=== PATIENT | male | born 1995 | race African-American/Black ===

== ENCOUNTER 2018-10-18 20:27 | Emergency (ER) | payer OTHER ==
--- NOTE | 2018-10-18 20:36 | PDOC ---
History of Present Illness - General History Source: Patient Exam Limitations: No Limitations - History of Present Illness Initial Comments: 10/18/18 21:11 The patient is a year 22 old male, with no significant PMH, who presents to the emergency department with right shoulder pain and chest pain that began approximately a year ago but progressively worsened today. The patient states his right shoulder feels heavy and experiences cramps that radiate to the right arm and hand. He notes sometimes intermittent numbness to the fingers especially the pinky. The patient also mentions he has intermittent mild chest discomfort as well. The patient denies any trauma or injuries. Denies headache and dizziness. Denies fever, chills, nausea, vomit, diarrhea and constipation. Allergies: NKDA Past surgical history: None reported Social history: Smokes marijuana daily but denies alcohol and tobacco use. PCP: None reported <Katiana Zimmer - Last Filed: 10/18/18 22:15> <Emelina Veras - Last Filed: 10/19/18 04:05> - General Chief Complaint: Pain Stated Complaint: SHOULDER PAIN/CHEST HEAVINESS Time Seen by Provider: 10/18/18 20:33 Past History <Katiana Zimmer - Last Filed: 10/18/18 22:15> - Past Medical History COPD: No - Immunization History Immunization Up to Date: Yes - Suicide/Smoking/Psychosocial Hx Smoking History: Current every day smoker Number of Cigarettes Smoked Daily: 0 Information on smoking cessation initiated: Yes Hx Alcohol Use: No Drug/Substance Use Hx: Yes (MARIJUANA) Substance Use Type: None <Emelina Veras - Last Filed: 10/19/18 04:05> - Past Medical History Allergies/Adverse Reactions: Allergies Allergy/AdvReac Type Severity Reaction Status Date / Time No Known Allergies Allergy Verified 05/01/14 16:51 Home Medications: Ambulatory Orders NK [No Known Home Medication] 10/18/18 Review of Systems - Review of Systems Able to Perform ROS?: Yes Comments:: 10/18/18 21:11 GENERAL/CONSTITUTIONAL: No fever or chills. No weakness. HEAD, EYES, EARS, NOSE AND THROAT: No change in vision. No ear pain or discharge. No sore throat. CARDIOVASCULAR: +Chest pain. No shortness of breath. RESPIRATORY: No cough, wheezing, or hemoptysis. GASTROINTESTINAL: No nausea, vomiting, diarrhea or constipation. GENITOURINARY: No dysuria, frequency, or change in urination. MUSCULOSKELETAL: No joint or muscle swelling or pain. No neck or back pain. SKIN: No rash NEUROLOGIC: No headache, vertigo, loss of consciousness, or change in strength/ sensation. ENDOCRINE: No increased thirst. No abnormal weight change. HEMATOLOGIC/LYMPHATIC: No anemia, easy bleeding, or history of blood clots. ALLERGIC/IMMUNOLOGIC: No hives or skin allergy. <Katiana Zimmer - Last Filed: 10/18/18 22:15> *Physical Exam - Vital Signs Last Vital Signs Temp Pulse Resp BP Pulse Ox 98.3 F 69 16 114/77 100 10/18/18 20:31 10/18/18 20:31 10/18/18 20:31 10/18/18 20:31 10/18/18 20:31 - Physical Exam Comments: 10/18/18 21:12 GENERAL: Awake, alert, and fully oriented, in no acute distress HEAD: No signs of trauma EYES: PERRLA, EOMI, sclera anicteric, conjunctiva clear ENT: Auricles normal inspection, hearing grossly normal, nares patent, oropharynx clear without exudates. Moist mucosa NECK: Normal ROM, supple, no lymphadenopathy, JVD, or masses LUNGS:+Crepitus right shoulder joint with abduction greater than 60 degrees. No tenderness to the AC joint. HEART: Regular rate and rhythm, normal S1 and S2, no murmurs, rubs or gallops ABDOMEN: Soft, nontender, normoactive bowel sounds. No guarding, no rebound. No masses EXTREMITIES: Normal range of motion, no edema. No clubbing or cyanosis. No cords, erythema, or tenderness NEUROLOGICAL: Cranial nerves II through XII grossly intact. Normal speech, normal gait SKIN: Warm, Dry, normal turgor, no rashes or lesions noted. <Katiana Zimmer - Last Filed: 10/18/18 22:15> - Vital Signs Last Vital Signs Temp Pulse Resp BP Pulse Ox 98.3 F 69 16 114/77 100 10/18/18 20:31 10/18/18 20:31 10/18/18 20:31 10/18/18 20:31 10/18/18 20:31 <Emelina Veras - Last Filed: 10/19/18 04:05> Moderate Sedation - Procedure Monitoring Vital Signs: Procedure Monitoring Vital Signs Temperature 98.3 F 10/18/18 20:31 Pulse Rate 69 10/18/18 20:31 Respiratory Rate 16 10/18/18 20:31 Blood Pressure 114/77 10/18/18 20:31 O2 Sat by Pulse Oximetry (%) 100 10/18/18 20:31 <GoranAurorasanjuana - Last Filed: 10/18/18 22:15> - Procedure Monitoring Vital Signs: Procedure Monitoring Vital Signs Temperature 98.3 F 10/18/18 20:31 Pulse Rate 69 10/18/18 20:31 Respiratory Rate 16 10/18/18 20:31 Blood Pressure 114/77 10/18/18 20:31 O2 Sat by Pulse Oximetry (%) 100 10/18/18 20:31 <Emelina Veras - Last Filed: 10/19/18 04:05> Medical Decision Making - Medical Decision Making Documentation has been prepared under my direction and personally reviewed by me in its entirety. I attest that this documented accurately reflects all work, treatment, procedures and medical decision making performed by me. As noted above, this 22-year-old man with a long (approximately one year) history of right shoulder discomfort presents to the ER with these complaints. No real increase in pain or new trauma to the area noted. Exam as noted with mild crepitus palpated in the joint on full extension of the arm but no other abnormalities including no tenderness of the AC joint. Right shoulder x-ray performed: Preliminary findings- No fracture dislocation seen. No before meals separation seen Results discussed with the patient. Patient does not want to take any medications including nonsteroidal anti-inflammatory medications. He will be discharged with advice to follow-up with orthopedist (). Also, the patient does not have a PCP. He had described mild increase in dyspnea on exertion in recent weeks. He has no acute cough/fever although he smokes marijuana on a daily basis (he does not smoke tobacco). Dr. Plata referral information provided for the patient. He should follow-up with him within the next 2 weeks <Emelina Veras - Last Filed: 10/19/18 04:05> *DC/Admit/Observation/Transfer - Attestations Scribe Attestion: 10/18/18 21:13 Documentation prepared by Katiana Zimmer, acting as medical legal investigator for Emelina Veras MD. <Katiana Zimmer - Last Filed: 10/18/18 22:15> <Emelina Veras - Last Filed: 10/19/18 04:05> Diagnosis at time of Disposition: Chronic shoulder pain Qualifiers: Laterality: right Qualified Code(s): M25.511 - Pain in right shoulder - Discharge Dispostion Disposition: HOME Condition at time of disposition: Stable - Referrals Referrals: Jayant Duke DO [Staff Physician] - Lei Plata MD [Staff Physician] - - Patient Instructions Printed Discharge Instructions: Shoulder Tendinopathy Additional Instructions: Avoid prolonged strenuous activity involving upper body for the next few weeks Call 's office (orthopedist) within the next 2-3 days to further evaluate shoulder pain Follow-up with (general medical doctor) within the next 1-2 weeks regarding intermittent chest discomfort Avoid smoking as discussed Return to ER if you have persistent chest pain, shortness of breath or you have persistent wheezing
[2018-10-18 20:48] VITALS: BP 114/77; PULSE 69; TEMP 98.3; BMI 25.1
== END 2018-10-18 21:30 | disposition home or self-care (01) ==
LOC: FER 20:27
DX: M25.511 Pain in right shoulder (principal)
CPT/HCPCS: 73030-TC-RT-FY; 99282-25